=== PATIENT | female | born 1990 | race Caucasian/White ===

== ENCOUNTER 2025-06-19 21:31 | Emergency (ER) | payer OTHER, SELFPAY ==
[2025-06-19 21:36] VITALS: BP 154/87
[2025-06-19 22:03] LABS: Hematocrit 35.2 % (37.0-47.0); Hemoglobin 11.9 g/dL (12.0-16.0); Mean Corp Hgb Conc. 33.8 g/dL (33.0-37.0); Mean Corpuscular Volume 87.6 fL (81.0-99.0); Nucleated Red Blood Cells % 0 %; Platelet Count 251 10^3/uL (130-400); Red Cell Dist. Width 12.6 % (11.5-14.5)
[2025-06-19 22:20] LABS: HCG, Serum Qualitative Screen Positive
[2025-06-19 22:26] LABS: ALT (SGPT) 16 U/L (0-35); AST (SGOT) 15 U/L (14-36); Albumin 4.2 g/dl (3.5-5.0); Alkaline Phosphatase 79 U/L (38-126); Blood Urea Nitrogen 11 mg/dl (7-17); Calcium 9.4 mg/dl (8.4-10.2); Carbon Dioxide 23 mmol/L (22-30); Chloride 106 mmol/L (98-107); Glucose 98 mg/dl (70-99); Potassium 4.4 mmol/L (3.5-5.1); Sodium 134 mmol/L (135-145); Total Protein 7.4 g/dl (6.3-8.2); eGFR > 60.00
[2025-06-20 00:42] VITALS: BMI 41.8
[2025-06-20 00:42] LABS: Beta HCG Quantitative 28140.00 mIU/ml
--- NOTE | 2025-06-20 00:52 | ED.GENMED ---
History of Present Illness
General
Chief Complaint: Vaginal Bleeding
Source: patient
Exam Limitations: none
Time Seen by Provider: 06/20/25 00:27
Nursing documentation reviewed up to this point in time: agreed with
History of Present Illness
History of Present Illness:
Note:
CHIEF COMPLAINT(S)
Vaginal bleeding and cramping.
HISTORY OF PRESENT ILLNESS
The patient is a 35-year-old female who is currently six weeks and four days , according to the ultrasound measurements, though she believes she is approximately seven weeks . She presents with vaginal bleeding and cramping that
began at 8:30 PM. This episode follows an initial spotting on Monday, which was described as brown-black and minimal. The patient was evaluated at a fertility clinic on Monday, where everything was reported as normal. She is awaiting the results of
a serum quantitative human chorionic gonadotropin (hCG) test to monitor progression.
The current clinical findings are reassuring, including detection of heartbeat and appropriate measurement corresponding to the gestational age, albeit with a slight discrepancy in estimated gestational age. The bleeding has been characterized
as a potential threat to miscarriage, although it is emphasized that such a diagnosis does not confirm a miscarriage. The patient has been advised to remain on complete pelvic rest and to follow up with her flame hardening machine operator-mill crane operator to monitor
progress. She has been instructed to return if symptoms such as increased bleeding, pain exacerbation, fever, chills, nausea, or vomiting occur.
REVIEW OF SYSTEMS
- Gastroenterological: Reports vaginal bleeding and cramping.
PHYSICAL EXAM
General: Alert, no acute distress.
Skin: Warm, dry.
Head: Normocephalic, atraumatic.
Neck: Supple, trachea midline.
Eye Ears, nose, mouth and throat: Oral mucosa moist.
Cardiovascular: Normal peripheral perfusion, No edema.
Respiratory: Respirations are non-labored.
Gastrointestinal: Abdomen nondistended
Back: Normal range of motion, Normal alignment.
Musculoskeletal: Normal range of motion, normal strength.
Neurological: Alert and oriented to person, place, time, and situation, No focal neurological deficit observed.
Psychiatric: Cooperative, appropriate mood & affect.
PLAN
- Await serum quantitative hCG results for monitoring progress.
- Patient to maintain complete pelvic rest.
- Follow up with flame hardening machine operator-mill crane operator for ongoing monitoring.
- Return if there is an increase in bleeding, pain, fever, chills, nausea, or vomiting.
DIFFERENTIAL DIAGNOSIS
The Differential Diagnosis includes, in no particular order and is not limited to:
- Threatened miscarriage
- Implantation bleeding
- Ectopic
- Subchorionic hemorrhage
- Molar
- Cervical polyps
- Urinary tract infection
- Vaginal infection
- Gastrointestinal cramping
- Dehydration
Disposition:
SUMMARY OF ENCOUNTER
The patient, a 35-year-old female approximately seven weeks , presented with symptoms of dysfunctional uterine bleeding. An ultrasound was performed, showing an anteverted uterus of normal size with an intrauterine gestational sac,
containing a pole with measurements consistent with six weeks and five days. There was a normal 5-millimeter yolk sac and a heart rate of 124 beats per minute. The cervix was noted to be closed. A serum quantitative human chorionic
gonadotropin (hCG) test indicated a level of 28,140. The patient follows up with her flame hardening machine operator at an outside hospital and has a scheduled appointment on Monday.
DISPOSITION
Discharge.
PATIENT EDUCATION AND COUNSELING
Return to care instructions were discussed with the patient and her , who expressed good understanding. They were provided with a copy of the ultrasound on a CD.
FOLLOW-UP INSTRUCTIONS
The patient has an appointment scheduled with her flame hardening machine operator for Monday and will call tomorrow morning to schedule further follow-up.
MEDICAL DECISION MAKING
- Complexity of Data Reviewed: Differential diagnosis includes threatened miscarriage, implantation bleeding, ectopic , subchorionic hemorrhage, molar , cervical polyps, urinary tract infection, vaginal infection, gastrointestinal
cramping, and dehydration.
DATA
Category 1
- My independent review of the ultrasound shows an anteverted uterus of normal size, an intrauterine gestational sac with a pole consistent with six weeks and five days, a 5-millimeter yolk sac, and a heart rate of 124 beats per minute.
- My independent review of labs indicates a serum quantitative hCG level of 28,140.
DIAGNOSIS
- Threatened miscarriage (O20.0)
- Early (Z34.81)
Course
Orders/Labs/Results
Orders:
Orders
06/19/25 21:46
Test Result ONCE
06/19/25 21:53
Type+Screen Urgent
Beta HCG Quantitative Urgent
Comment: ADD ON
Complete Blood Count/With Diff Urgent
Comprehensive Metabolic Panel Urgent
HCG, Serum Qualitative Screen Urgent
06/19/25 22:05
US W Transvaginal Urgent
Reason For Exam: possible miscarriage, BLEEDING
06/20/25 00:30
Add On- LAB Urgent
Tests Added?: beta quantitative
Abnormal Lab Results
06/19/25
21:53
WBC 12.6 H 10^3/uL
(4.8-10.8)
RBC 4.02 L 10^6/uL
(4.20-5.40)
Hgb 11.9 L g/dL
(12.0-16.0)
Hct 35.2 L %
(37.0-47.0)
MPV 11.1 H fL
(7.4-10.4)
Abs Immat Gran (auto) 0.1 H 10^3/uL
(0-0.05)
Absolute Neuts (auto) 8.9 H 10^3/uL
(1.4-6.5)
Absolute Monos (auto) 0.9 H 10^3/uL
(0.1-0.6)
Lymphocytes % 20.1 L %
(20.5-51.1)
Sodium 134 L mmol/L
(135-145)
06/19/25 21:53
06/19/25 21:53
Vital Signs
Initial and Last Documented VS:
Initial Vital Signs
Temp Pulse Resp BP Pulse Ox
98.4 F 86 20 154/87 99
06/19/25 21:36 06/19/25 21:36 06/19/25 21:36 06/19/25 21:36 06/19/25 21:36
Last Documented Vital Signs
Temp Pulse Resp BP Pulse Ox
98.4 F 86 20 154/87 99
06/19/25 21:36 06/19/25 21:36 06/19/25 21:36 06/19/25 21:36 06/20/25 00:52
*Radiology
Radiology exam reviewed: radiology read reviewed
*Pulse Oximetry
SaO2: 99
Oxygen Mode of Delivery: Room air
Patient hypoxic: no
*Critical Care Note
Total Time (30-74mins, 75-104mins- exclusive of procedures): Not Applicable
Update Note
Update Note:
NAME: FAWN NAPIER
DATE OF EXAM: 06/19/2025
Patient No: [id number]
Physician: RASHAD
Date of : 1990
Past Medical History (entered by Technologist):
Reason For Exam (entered by Technologist): bleeding/spotting
Other Notes (entered by Technologist): pt denies clots
ivf
Additional Information (per [facility] Radiologist):
Ultrasound pelvis/OB
IMPRESSION:
Anteverted uterus normal in size. Intrauterine gestational sac contains pole with crown-rump length measurements compatible with 6 weeks 5 days. Normal 5 mm yolk sac. heart rate 124 bpm.
Hypoechoic collection suspicious for subchorionic hemorrhage measures 2.8 x 1.3 x 2 cm, located posteriorly gestational sac.
Cervix closed 2.7 cm.
Pedunculated right fundal anterior fibroid measures 2 cm.
Ovaries normal in size with internal color flow. No free fluid or adnexal mass
Case finalized on 06/19/25 23:37 EDT
Ezekiel Padron M.D.
ED Attending Note
-
Portions of this chart may have been created with voice recognition software.� Occasional wrong word or��sound alike� substitutions may have occurred due to the inherent limitations of voice recognition software.
Discharge Plan
Departure
Patient Disposition: Home (Routine Discharge)
Date of Disposition: 06/20/25
Time of Disposition: 01:57
Patient with high blood pressure during this ER visit?: Yes
Condition: Good
Discharge Problem:
Threatened miscarriage
Instructions: Threatened Miscarriage (DC)
Prescriptions:
No Action
progesterone [Progesterone in Oil] 50 mg/mL Oil
50 mg IM DAILY
estradiol 2 mg Tablet
2 mg PO DAILY
Rx Instructions:
one tablet PO 3x a day, one tablet vaginally 2x a day
Activity Restrictions/Additional Instructions:
Please follow-up with your fertility doc by calling in the morning.
Thank You for choosing [facility].
It was a pleasure meeting you and taking part in your care. We hope for your continued healing and wellness.
Please read discharge instructions in their entirety. However, they are for general education and may not describe your exact diagnosis at discharge. Information on your ER visit and medical conditions were discussed with you along with appropriate
follow up information...
If indicated, please take your medications as instructed and indicated on discharge paperwork.
Please schedule a follow up appointment as directed. Call to schedule an appointment
Please return to the emergency department with ANY change in, persisting, or worsening of symptoms. If any of your symptoms do not improve, or persist, or become more severe within 6-12 hours, please return to the emergency department for further
care.
Please return to the emergency department if you develop a headache, neck pain/stiffness, fever greater than 100.4F, chest pain, shortness of breath, persistent nausea, vomiting, slurred speech, difficulty walking, numbness/tingling, weakness, signs
of infection or any other symptoms that are worrisome to you.
If you have any questions or concerns please do not hesitate to call the Hospital at .
Interventions
Interventions:
*Risk Screen - Suicide Last Done: 06/19/25 21:44
*General Assessment Last Done: 06/20/25 00:41
*Neglect/Abuse Screening Last Done: 06/19/25 21:44
*ED- Fall Risk Assessment Last Done: 06/20/25 00:41
*ED COVID-19 Vaccine History Last Done: 06/19/25 21:44
*ED Influenza Vaccine History Last Done: 06/19/25 21:44
ED-Female Genitourinary Assessment Last Done: 06/20/25 00:37
Discharge Date and Time
Print Language: AZERI
[2025-06-20 02:18] VITALS: BP 107/55
== END 2025-06-20 02:20 | disposition home or self-care (01) ==
LOC: EMR 21:31
PROVIDERS: Emergency Medicine; EMERGENCY PHYSICIAN Student in an Organized Health Care Education/Training Program; FAMILY PHYSICIAN Family Medicine
DX: O20.0 Threatened abortion (principal); N85.4 Malposition of uterus; O34.11 Maternal care for benign tumor of corpus uteri, first trimester; Z3A.01 Less than 8 weeks gestation of pregnancy
CPT/HCPCS: 99284; 76801; 76817; 80053; 84702; 84703; 85025; 86850; 86900; 86901